=== PATIENT | female | born 1950 | race Caucasian/White ===

== ENCOUNTER 2018-04-01 21:06 | Observation (INO) | payer MEDICARE ==
[2018-04-01 21:59] LABS: ABS Basophils 0 10^3/ul (0-0.2); ABS Eosinophils 0 10^3/ul (0-0.6); ABS Lymphocytes 0.5 10^3/ul (1.0-4.8); ABS Monocytes 0.7 10^3/ul (0-0.8); ABS Neutrophils 5.7 10^3/ul (1.5-7.7); ABS Nucleated RBC 0 10^3/ul; Eosinophil % 0.4 % (0-6); Hematocrit 37 % (35-47); Hemoglobin 12.3 g/dl (12.0-16.0); Mean Corpuscular HGB Conc 34 g/dl (31-36); Mean Corpuscular Hemoglobin 31 pg (27-31); Mean Corpuscular Volume 91 fL (80-97); Mean Platelet Volume 8.2 um3 (7.4-10.4); Nucleated Red Blood Cells % 0; Platelet Count 259 10^3/ul (150-450); Red Blood Count 4.02 10^6/ul (4.0-5.4); Red Cell Distribution Width 15 % (10.5-15); White Blood Count 6.9 10^3/ul (3.5-10.8)
[2018-04-01] MEDS ORDERED: NS 0.9% 1000 ML* 1,000 ML IV ONE (22:07)
[2018-04-01] MEDS ORDERED: Morphine VIAL* 4 MG/ML VIAL (1 ml vial) IV ONE (22:08)
[2018-04-01] MEDS ORDERED: Metoclopramide IV* 5 MG/ML 2 ML VIAL IV SLOW PU ONE (22:08)
[2018-04-01 23:17] LABS: Urine Appearance Clear; Urine Blood 1+ (Negative); Urine Color Yellow; Urine Ketones 1+ (Negative); Urine Protein Negative (Negative); Urine Specific Gravity 1.017 (1.010-1.030); Urine Urobilinogen Negative (Negative)
[2018-04-02] MEDS ORDERED: Iohexol 300* (CONTRAST) 10 ML SDV IV ONE (00:01)
[2018-04-02] MEDS ORDERED: NS 0.9% 1000 ML* 1,000 ML IV ONE (01:46)
[2018-04-02] MEDS ORDERED: metroNIDAZOLE IV 500 MG/100ML* 500 MG/100 ML BAG IVPB ONE (01:59)
[2018-04-02] MEDS ORDERED: Levofloxacin 500 MG IVPREMIX(* 500 MG/100 ML BAG IVPB ONE (01:59)
--- NOTE | 2018-04-02 02:15 | ED ---
Carmen Cavanaugh Rebecca, scribed for Kady Dailey MD on 04/01/18 at 2210 . Abdominal Pain/Female - HPI Summary HPI Summary: Pt is a 67 y/o F who presents to ED c/o RLQ abdominal pain. Sx have been intermittent since last night, with brief episodes last night, this afternoon, and a few hours [employer]. Her current pain is severe, ranked 8/10 and does not radiate anywhere. Additionally c/o diarrhea this morning. Denies N/V, and constipation. PSHx hernia repair and she still has her appendix. - History of Current Complaint Chief Complaint: EDAbdPain Stated Complaint: ABD PAIN Time Seen by Provider: 04/01/18 21:57 Hx Obtained From: Patient Onset/Duration: Still Present Timing: Intermittent Episode Lasting Severity Currently: Severe Pain Intensity: 8 Pain Scale Used: 0-10 Numeric Location: Discrete At: RLQ Radiates: No Aggravating Factor(s): Nothing Alleviating Factor(s): Nothing Associated Signs and Symptoms: Positive: Diarrhea. Negative: Constipation, Nausea, Vomiting Allergies/Adverse Reactions: Allergies Allergy/AdvReac Type Severity Reaction Status Date / Time iodine Allergy See Comment Verified 04/01/18 21:14 PMH/Surg Hx/FS Hx/Imm Hx Endocrine/Hematology History: Denies: Hx Diabetes Cardiovascular History: Reports: Hx Hypertension Denies: Hx Pacemaker/ICD GI History: Reports: Hx Irritable Bowel, Other GI Disorders - hemorrhoids History: Denies: Hx Renal Disease Musculoskeletal History: Denies: Hx Osteoporosis Sensory History: Denies: Hx Hearing Aid Psychiatric History: Denies: Hx Panic Disorder - Cancer History Hx Chemotherapy: No Hx Radiation Therapy: No - Surgical History Surgery Procedure, Year, and Place: inguinal hernia right. inguinal endometriosis. Rt RING FINGER - as a child - TENDON REPAIR - Immunization History Date of Tetanus Vaccine: unk Date of Influenza Vaccine: none Infectious Disease History: No Infectious Disease History: Denies: Hx Clostridium Difficile, Hx Hepatitis, Hx Human Immunodeficiency Virus (HIV), Hx of Known/Suspected MRSA, Hx Shingles, Hx Tuberculosis, Hx Known/ Suspected VRE, Hx Known/Suspected VRSA, History Other Infectious Disease, Traveled Outside the [place] in Last 30 Days - Family History Known Family History: Positive: Other - cousin: colon CA - Social History Alcohol Use: None Substance Use Type: Reports: None Smoking Status (MU): Never Smoked Tobacco Have You Smoked in the Last Year: No Review of Systems Negative: Fever Positive: Abdominal Pain, Diarrhea, Other - NEGATIVE: Constipation. Negative: Vomiting, Nausea All Other Systems Reviewed And Are Negative: Yes Physical Exam - Summary Physical Exam Summary: VITAL SIGNS: Reviewed. GENERAL: ~Patient is a well-developed and nourished female who is lying comfortable in the stretcher. Patient is not in any acute respiratory distress. HEAD AND FACE: No signs of trauma. No ecchymosis, hematomas or skull depressions. No sinus tenderness. EYES: PERRLA, EOMI x 2, No injected conjunctiva, no nystagmus. EARS: Hearing grossly intact. Ear canals and tympanic membranes are within normal limits. MOUTH: Oropharynx within normal limits. NECK: Supple, trachea is midline, no adenopathy, no JVD, no carotid bruit, no c- spine tenderness, neck with full ROM. CHEST: Symmetric, no tenderness at palpation LUNGS: Clear to auscultation bilaterally. No wheezing or crackles. CVS: Regular rate and rhythm, S1 and S2 present, no murmurs or gallops appreciated. ABDOMEN: Soft, RLQ tenderness. No signs of distention. No rebound no guarding, and no masses palpated. Bowel sounds are normal. EXTREMITIES: FROM in all major joints, no edema, no cyanosis or clubbing. NEURO: Alert and oriented x 3. No acute neurological deficits. Speech is normal and follows commands. SKIN: Dry and warm Triage Information Reviewed: Yes Vital Signs On Initial Exam: Initial Vitals Temp Pulse Resp BP Pulse Ox 98.1 F 71 18 161/77 100 04/01/18 21:11 04/01/18 21:11 04/01/18 21:11 04/01/18 21:11 04/01/18 21:11 Vital Signs Reviewed: Yes Diagnostics - Vital Signs Vital Signs Temp Pulse Resp BP Pulse Ox 04/01/18 21:11 98.1 F 71 18 161/77 100 - Laboratory Lab Results: Lab Results 04/01/18 Range/Units 21:47 WBC 6.9 (3.5-10.8) 10^3/ul RBC 4.02 (4.0-5.4) 10^6/ul Hgb 12.3 (12.0-16.0) g/dl Hct 37 (35-47) % MCV 91 (80-97) fL MCH 31 (27-31) pg MCHC 34 (31-36) g/dl RDW 15 (10.5-15) % Plt Count 259 (150-450) 10^3/ul MPV 8.2 (7.4-10.4) um3 Neut % (Auto) 82.8 (38-83) % Lymph % (Auto) 7.0 L (25-47) % [place] % (Auto) 9.5 H (0-7) % Eos % (Auto) 0.4 (0-6) % Baso % (Auto) 0.3 (0-2) % Absolute Neuts (auto) 5.7 (1.5-7.7) 10^3/ul Absolute Lymphs (auto) 0.5 L (1.0-4.8) 10^3/ul Absolute Monos (auto) 0.7 (0-0.8) 10^3/ul Absolute Eos (auto) 0 (0-0.6) 10^3/ul Absolute Basos (auto) 0 (0-0.2) 10^3/ul Absolute Nucleated RBC 0 10^3/ul Nucleated RBC % 0 Result Diagrams: 04/01/18 21:47 04/01/18 21:47 Lab Statement: Any lab studies that have been ordered have been reviewed, and results considered in the medical decision making process. - CT CT Abd/Pel CT Interpretation Completed By: Radiologist - There is thickening of the warren of the terminal ileum and similar mild thickening/edema of the warren of the right colon. Findings likely represent ileitis/colitis. The appendix is upper most limits of normal thickness at approximately 7.6 mm. No bowel obstruction. No free intraperitoneal air. Normal liver. Normal gallbladder. Normal spleen. Normal pancreas. Normal adrenal glands. Right renal cyst otherwise normal kidneys urinary tract and urinary bladder. Osseous structures are intact. ED physician reviewed this report. Pending official report. Re-Evaluation - Re-Evaluation First Eval Re-Evaluation Time: 01:56 Change: Improved Comment: Discussed results. Her pain is better. but not completely gone. On reevaluation, she is tender in both lower quadrants, left greater than right. Abdominal Pain Fem Course/Dx - Course Course Of Treatment: Pt is a 67 y/o F who presents to ED c/o intermittent RLQ abdominal pain since last night, with brief episodes last night, this afternoon , and a few hours [employer]. Currently severe, ranked 8/10 without radiation. Additionally c/o diarrhea this morning. Denies N/V, and constipation. PSHx hernia repair and she still has her appendix. CT Abd/Pel impression above. Blood work and UA were done with blood results including a BUN of 26. UA is yellow and clear with 1+ ketones, blood and RBC with squamous epithelial cells present. In the ED course, pt received Levaquin, Reglan, Flagyl, Morphine and fluids. Discussed care of pt with Dr. Beck who accepts pt for admission. She will be admitted with Dx of colitis. She understands and agrees. Allergy noted. - Diagnoses Provider Diagnoses: Colitis - Provider Notifications Discussed Care Of Patient With: Leela Beck Time Discussed With Above Provider: 02:05 Instructed by Provider To: Other - Accepts pt for admission. Discharge - Sign-Out/Discharge Documenting (check all that apply): Discharge/Admit/Transfer - Admit - Discharge Plan Condition: Fair Disposition: ADMITTED TO [facility] Referrals: Macey Pugh MD [Primary Care Provider] - The documentation as recorded by the Carmen villargan Rebecca accurately reflects the service I personally performed and the decisions made by , Kady Dailey MD.
[2018-04-02] MEDS ORDERED: Ondansetron 40 MG VIAL* 2 MG/ML 20 ML VIAL IV PRN (02:38)
[2018-04-02] MEDS ORDERED: Al Hydrox/Mg Hydrox/Simet LIQ* 30 ML UDC PO PRN (02:38)
[2018-04-02] MEDS ORDERED: Morphine INJ* 2 MG/ML 1 ML CARPUJECT IV PRN (02:42)
[2018-04-02] MEDS ORDERED: NS 0.9% 1000 ML* 1,000 ML IV SCH (02:45)
--- NOTE | 2018-04-02 04:31 | HP ---
CC: Dr. Macey Pugh * HISTORY AND PHYSICAL: DATE OF ADMISSION: 04/02/18 TIME OF EVALUATION: 0200. PRIMARY CARE PHYSICIAN: Dr. Macey Pugh. CHIEF COMPLAINT: Abdominal pain. HISTORY OF PRESENT ILLNESS: This is a 67-year-old female with a past medical history of irritable bowel syndrome, on Xifaxan, who presents to the emergency room, with acute onset of right lower quadrant abdominal pain. She states she had one incident similar to this several months ago, and this time, this is her third episode in the past two days with significant abdominal pain, more in the right lower quadrant, but also periumbilical. She did have some diarrhea this morning, which is not unusual for her again in the setting of her irritable bowel syndrome. She only developed nausea, vomiting after they gave her morphine in the emergency room. She denies any fevers or chills. She states that her pain is improved, but is tender to palpation. Regarding any weight loss, she states she has lost some weight after taking several supplements but is back to her baseline and gaining weight back. She did have a colonoscopy 2 years ago that was unremarkable. No sick contacts. Otherwise, remaining review of systems is negative. In the emergency room, the patient had labs and imaging. She was given 2 L of fluid, 4 mg of morphine, Reglan 10 mg, and referred to the hospitalist service for further evaluation. PAST MEDICAL HISTORY: 1. Irritable bowel syndrome, predominant diarrhea. 2. Hypertension. MEDICATIONS: 1. Xifaxan 400 mg p.o. b.i.d. 2. Metoprolol succinate 12.5 mg p.o. daily. ALLERGIES: IODINE. FAMILY HISTORY: No history of IBD or colon cancer. Code status is full code. SOCIAL HISTORY: The patient lives at home with her partner, [place], who is her healthcare proxy. No history of smoking, alcohol, or illicit drug use. 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 REVIEW OF SYSTEMS: A 14-point review of systems mentioned in the HPI, otherwise negative. PHYSICAL EXAMINATION GENERAL: In no acute distress, resting comfortably. VITAL SIGNS: Temp 98.1, pulse rate 80, respiratory rate 16, oxygen saturation 96 % on room air, blood pressure 123/71. HEENT: Head: Normocephalic. Pupils are equal and reactive. Oropharynx: Mucous membranes moist. NECK: Supple. No lymphadenopathy. RESPIRATORY: Clear to auscultation. No wheezes, rhonchi, or rales. CARDIAC: Regular rate and rhythm. Soft systolic murmur heard, most pronounced at the left sternal base. ABDOMEN: Hypoactive bowel sounds, some mild distention. Tenderness in the periumbilical, more predominantly right side of the abdomen. No rebound or guarding. No peritoneal signs. EXTREMITIES: No clubbing, cyanosis, or edema. NEUROLOGIC: Alert and oriented x3. No gross focal neurological deficits. DIAGNOSTIC STUDIES/LAB DATA: White count 6.9, hemoglobin 12.3, hematocrit 37, platelets 259. Sodium 134, potassium 3.9, chloride 100, bicarb 25, BUN 26, creatinine 0.7. CRP is less than 1. Urinalysis: trace ketones, trace blood. Abdominal and pelvis CT shows there is thickening edema of the warren of the terminal ileum and similar mild thickening edema of the warren of the right colon. Findings likely represent ileitis/colitis. The appendix is at the upper limit of normal, thickness at approximately 7.6 mm. No bowel obstruction. No free intraperitoneal air. ASSESSMENT AND PLAN: This is a 67-year-old female with a past medical history of irritable bowel syndrome, on Xifaxan, who presents to the emergency room with intractable abdominal pain and found to have ileitis/colitis on CAT scan. Abdominal pain. Assessment: Overnight read on the CAT scan showing ileitis, colitis. She does not have any elevated inflammatory markers. No white count. No fever. Her abdomen is nonacute abdomen. I am suspicious that this is an adverse reaction to xifaxan causing pseudomembranous colitis and not infectious colitis. Does not appear to be ischemic colitis and does not appear to be related to ulcerative or any inflammatory bowel disease. Plan: We will admit for observation for pain control and monitoring. Continue on IV fluids, clear liquid diet, advance as tolerated. We will continue Flagyl and Cipro for now and hold her Xifaxan and I will check a sed rate as well. CHRONIC MEDICAL PROBLEMS: 1. IBS. As mentioned, holding Xifaxan as this may be causing pseudomembranous colitis. 2. Hypertension. Continue her metoprolol. 3. FEN. Clear liquids. Advance as tolerated. 4. DVT prophylaxis. The patient scores moderate risk. Place on heparin subcu t.i.d. 5. Code status. Full code. PATIENT TIME: Greater than 45 minutes was spent doing the history and physical , more than half the time spent in direct patient contact. [id number]/CPS #: [id number] MTDD
[2018-04-02] MEDS: Heparin VIAL(*) 5000 UNITS/ML VIAL (FIVE THOUSAND) SUBCUT SCH ×2 (05:14→12:47)
--- NOTE | 2018-04-02 08:12 | RAD ---
CLINICAL HISTORY: Abdominal pain and diarrhea COMPARISON: None TECHNIQUE: Contrast enhanced CT examination of the abdomen and pelvis from the lung bases through the initial tuberosities. The patient received 59 mL Omnipaque 300 intravenously prior to imaging.The patient received oral contrast as well prior to imaging. FINDINGS: VISUALIZED LUNG BASES: The visualized lung bases are grossly clear. There is no pleural effusion. ABDOMEN AND PELVIS: The liver, spleen, pancreas and adrenal glands are grossly normal in appearance. The gallbladder is normal. At the mid-level right renal cortex there is a 7 mm x 14 mm hypoattenuating focus with a Hounsfield unit greater than that of a simple cyst. Otherwise the kidneys are normal in appearance without focal mass, calcification or signs of hydronephrosis. 0 contrast has progressed only as far as the midpoint small bowel which limits evaluation of the distal small bowel and colon. There is relative distention of the cecum measuring up to 7.9 cm in diameter compared to the more distal but gas and stool-filled colon. The appendix has air in the lumen measuring 7 mm in diameter (axial image 51). There is questionable mild wall thickening of the terminal ileum and right ascending colon. There is no gross retroperitoneal or mesenteric lymphadenopathy. The pelvic viscera is normal in appearance. The abdominal aorta and iliac arteries are normal in course and diameter. There is levoconvex curvature of the lumbar spine. Multilevel degenerative change includes loss of intervertebral disc height and vacuum disc phenomenon at L5/S1 and L2/L3.There are no sinister bone lesions. IMPRESSION: 1. There is questionable mild wall thickening of the terminal ileum, cecum and a sending colon. Please correlate to signs and symptoms of ileitis/colitis. 2. The stool filled cecum measures nearly 8 cm in diameter, dilated relative to the more distal gas and stool-filled colon. These correlate to symptoms of bowel dysmotility and/or constipation. 3. In the right kidney there is a 7 x 14 mm hypoattenuating focus with a Hounsfield unit greater than that of a simple cyst. This can be further characterized with nonemergent ultrasound of the right kidney. 4. Additional chronic and degenerative changes described in the body the report.
[2018-04-02] MEDS: metroNIDAZOLE IV 500 MG/100ML* 500 MG/100 ML BAG IVPB SCH ×2 (08:52→15:23)
[2018-04-02] MEDS ORDERED: Metoprolol Succinate XL TAB* 25 MG PO SCH (09:00)
[2018-04-02] MEDS ORDERED: Acetaminophen TAB* 325 MG PO PRN (10:56)
[2018-04-02 16:01] VITALS: BP 120/67
[2018-04-03] MEDS ORDERED: Ciprofloxacin 400MG IVPREMIX(* 400 MG/200 ML BAG IVPB SCH (02:00)
== END 2018-04-02 18:45 | disposition home or self-care (01) ==
LOC: ED 21:06 → MED 04-02 02:38
PROVIDERS: ADMIT Pediatrics; ATTEND Hospitalist
DX: R10.31 Right lower quadrant pain (principal); K52.9 Noninfective gastroenteritis and colitis, unspecified; I10 Essential (primary) hypertension; R19.7 Diarrhea, unspecified; K58.0 Irritable bowel syndrome with diarrhea
CPT/HCPCS: 36415; 74177; 80053; 81003; 81015; 83605; 83690; 85025; 85652; 86140; 87086; 99284; A9270-GY; G0378; J0744; J1644; J1956; J2270; J2765; J3490; Q9967